=== PATIENT | female | born 1950 | race Caucasian/White ===

== ENCOUNTER 2017-10-16 18:46 | Observation (INO) | payer OTHER, MEDICARE ==
[~2017-10-16] VITALS: Ht 160 cm; Wt 56.2 kg
--- NOTE | 2017-10-16 19:10 | ED SYNCOPE COMPLAINT ---
History of Present Illness General Chief Complaint: Syncope and Near-Syncope Stated Complaint: BIBA WITNESS SYNCOPE, +VOMITTING Source: patient, friend Exam Limitations: no limitations Vital Signs & Intake/Output Vital Signs & Intake/Output Vital Signs Date Time Temp Pulse Resp B/P B/P Pulse O2 O2 Flow FiO2 Mean Ox Delivery Rate 10/17 0054 98.4 88 18 137/73 96 Room Air 10/17 0053 98.4 10/16 2259 98.2 10/16 2243 98.2 90 18 102/59 97 Room Air 10/16 2109 99.8 83 18 126/71 98 Room Air 10/16 1854 97.3 71 16 117/70 97 Room Air ED Intake and Output 10/17 0000 10/16 1200 Intake Total 1000 Output Total 250 Balance 750 Intake, IV 1000 Number 2 Bowel Movements Output, Urine 250 Patient 124 lb Weight Allergies Coded Allergies: erythromycin base (Mild, RASH 10/16/17) azithromycin (RASH 10/16/17) Reconcile Medications No Known Home Medications Triage Nurses Notes Reviewed? yes Timing: single episode today Precipitating Factors: lightheadedness Context: became dizzy/fainted Loss of Consciousness: brief (seconds) Associated Symptoms: dizziness, syncope, nausea/vomiting, weakness LMP (ages 10-50): post menopausal : No Patient currently breastfeeds: No HPI: 66-year-old female with no past medical history brought in by ambulance for evaluation after a syncopal episode. Patient states that she was at dinner with her friends. She had eaten pizza and drank 2 glasses of wine. She states that she started to feel little bit nauseous. She was walking out to her car which is only felt very lightheaded dizzy more nauseous. Her friends walked behind her said that she suddenly started to collapse to the ground. There able to catch her to prevent her from hitting her head. She was able to get up and then had a second syncopal episode right after. She had associated nausea and multiple episodes of vomiting during this time. She was also incontinent of stool and urine. Her friends that witnessed the event deny any rhythmic movements of her arms or legs. She does not have any history of seizures. Patient was brought back into the restaurant after the second episode and is currently feeling much better. There is no chest pain or shortness of breath during the episode. Never happened before. No recent surgery or trauma no history of blood clots. She does report still feeling a little nauseous and had several episodes of vomiting in route to the hospital and here in the emergency department. (Israel Sutton) Past History Travel History Traveled to [place] past 21 day No Medical History Any Pertinent Medical History? see below for history Surgical History Surgical History: non-contributory Psychosocial History What is your primary language [place] Family History Hx Contributory? No (Israel Sutton) Review of Systems Review of Systems Constitutional: Reports: no symptoms. EENTM: Reports: no symptoms. Respiratory: Reports: no symptoms. Cardiovascular: Reports: no symptoms. GI: Reports: see HPI, nausea, vomiting. Genitourinary: Reports: no symptoms. Musculoskeletal: Reports: no symptoms. Skin: Reports: no symptoms. Neurological/Psychological: Reports: no symptoms. All Other Systems: Reviewed and Negative (Israel Sutton) Physical Exam Physical Exam General Appearance: well developed/nourished, no apparent distress, alert, awake Head: atraumatic, normal appearance Eyes: Bilateral: normal appearance, PERRL, EOMI. Ears, Nose, Throat: normal pharynx, normal ENT inspection, hearing grossly normal Neck: normal inspection, supple, full range of motion Respiratory: normal breath sounds, chest non-tender, no respiratory distress, lungs clear Cardiovascular: regular rate/rhythm, normal peripheral pulses Gastrointestinal: normal bowel sounds, soft, non-tender, no organomegaly Back: normal inspection, normal range of motion, no vertebral tenderness Extremities: normal inspection, normal range of motion, no edema Psychiatric: awake, alert, oriented x 3 Cranial Nerves: normal hearing, normal speech, PERRL Coordination/Gait: normal finger to nose, normal gait Motor/Sensory: no motor/sensory deficits Skin: intact, normal color, warm/dry Core Measures ACS in differential dx? No CVA/TIA Diagnosis: No Sepsis Present: No Sepsis Focused Exam Completed? No (Israel Sutton) Progress Differential Diagnosis: AMI, drug induced syncope, orthostatic syncope, other valvular disease, seizure, vasodepressor syncope, DEHYDRATION Plan of Care: Orders Procedure Date/time Status Nothing by Mouth 10/17 B Active Patient Data 10/16 2247 Active Saline Lock 10/[address] in observation 10/16 2240 Active Misc Message 10/16 2240 Active ED Holding Orders 10/16 2240 Active Vital Signs 10/16 2240 Active Code Status 10/16 2240 Active Add-on Test (ER Only) 10/16 2109 Active MAGNESIUM 10/16 1924 Complete ETHANOL 10/16 1924 Complete URINALYSIS 10/16 1857 Complete MISTAKE 10/16 1853 Active Telemetry/Musical Instrument Maker Or Repairer 10/16 1849 Active TROPONIN LEVEL 10/16 1849 Complete COMPREHENSIVE METABOLIC PANEL 10/16 1849 Complete CBC WITHOUT DIFFERENTIAL 10/16 1849 Complete EKG 10/16 1849 Active Laboratory Tests 10/16/172149: Urine Color YEL, Urine Clarity HAZY H, Urine pH 5.5, Ur Specific [place] >= 1.030, Urine Protein TRACE H, Urine Ketones 40 H, Urine Nitrite NEG, Urine Bilirubin NEG, Urine Urobilinogen 0.2, Ur Leukocyte Esterase NEG, Ur Microscopic SEDIMENT EXAMINED, Urine RBC 10-15 H, Urine WBC 1-3 H, Ur Epithelial Cells TRANS H, Hyaline Casts MANY H, Granular Casts RARE H, Urine Mucus MANY H, Urine Hemoglobin TRACE-LYSED, Urine Glucose NEG 10/16/171924: Anion Gap 17 H, Estimated GFR > 60, BUN/Creatinine Ratio 15.0, Glucose 99, Calcium 10.2, Magnesium 2.1, Total Bilirubin 0.4, AST 29, ALT 37, Alkaline Phosphatase 61, Troponin I < 0.01, Total Protein 8.1, Albumin 5.3 H, Globulin 2.8, Albumin/Globulin Ratio 1.9, CBC w Diff MAN DIFF ORDERED, RBC 4.70, MCV 92.7 , MCH 31.3 H, RDW 12.8, MPV 7.7, Gran % 88.0 H, Lymphocytes % 7.7 L, Monocytes % 2.9, Eosinophils % 0.6, Basophils % 0.8, Absolute Granulocytes 15.3 H, Segmented Neutrophils 82 H, Band Neutrophils 1, Absolute Lymphocytes 1.3, Lymphocytes 11 L, Monocytes 5, Absolute Monocytes 0.5, Eosinophils 1, Absolute Eosinophils 0.1, Absolute Basophils 0.1, Platelet Estimate VERIFIED BY SMEAR, Normocytic RBCs VERIFIED, Normochromic RBCs VERIFIED, PUBS MCHC 33.8, Fld Total RBCs Counted 100, Serum Alcohol 42.0 10/16/171902: Serum Alcohol Cancelled 10/16/171857: Magnesium Cancelled Patient seen and evaluated. She had 2 [id number] syncopal episodes today. There is no chest pain or shortness of breath. She does report multiple episodes of nausea and vomiting. She was also incontinent of stool and urine during the episode. The episode was witnessed and there was no apparent seizure activity. On initial evaluation patient became very dizzy during orthostatics were unable to get a blood pressure while she was standing. She feels much better after receiving a liter of saline and she is no longer orthostatic. Initial EKG and troponin are negative. Patient does have an white blood cell count of 17. Her abdomen is soft and nontender urine is clean chest x-ray is clean. No evidence of cellulitis. This may be related to multiple episodes of vomiting versus viral gastroenteritis. Patient will be admitted for observation to telemetry. She will have serial EKGs and troponins monitoring of vital signs IV fluids. Case discussed with Dr. Wright he agrees. The patient does have a low-grade temp of 100.3. IV Tylenol ordered. Diagnostic Imaging: Viewed by Me: Radiology Read. Discussed w/RAD: Radiology Read. CXR Impression: PATIENT: RON GUZMAN PRESENT AGE : 66 PATIENT ACCOUNT NO: [id number] : 51 LOCATION: [facility] ORDERING PHYSICIAN: Florentin Wright MD SERVICE DATE: 10/16/17 EXAM TYPE: RAD - XRY-PORTABLE CHEST XRAY EXAMINATION: XR PORTABLE CHEST CLINICAL INFORMATION: Syncope. COMPARISON: None TECHNIQUE: Portable frontal view of the chest was obtained. FINDINGS: The lungs are well-expanded and clear of acute process. The heart size and pulmonary vascularity is normal. No gross bony abnormality seen. IMPRESSION: Unremarkable chest exam. DICTATED BY: Mabel ZUNIGA, Vinny DATE/TIME DICTATED:10/16/171956 PACK PULLER:FAUSTO DATE/TIME TRANSCRIBED:10/16/171956 Initial ED EKG: normal sinus rhythm, BORDERLINE T WAVE ABN ANTERIOR LEADS (Israel Sutton) Departure Departure Disposition: STILL A PATIENT Condition: Stable Clinical Impression Primary Impression: Syncope Qualifiers: Syncope type: unspecified Qualified Code: R55 - Syncope and collapse Referrals: Gallito Yang MD (PCP/Family) Departure Forms: Customer Survey General Discharge Information Prescriptions: Current Visit Scripts No Known Home Medications Observation Note Spoke With: Natasha Aguero MD Physician Advisor Notified: MARTA ZUNIGA,GALLITO [address] Place Patient In: Non-ED OBS Care Area Rationale for Observation: My rational for observation is as follows [telemetry monitoring, serial EKGs and troponins, IV fluids, IV antiemetics]. (Selwyn ABRAHAM,[place]) PA/DIAZO TECHNICIAN Co-Sign Statement Statement: ED Attending supervision documentation- [x] I saw and evaluated the patient. I have also reviewed all the pertinent lab results and diagnostic results. I agree with the findings and the plan of care as documented in the PA's/DIAZO TECHNICIAN's documentation. 10/16/16, 22:29... pt with syncopal episode, likely vasovagal, however given age, will place in observation for serial trops and repeat ekg. pt with benign exam in ED, comfortable. [] I have reviewed the ED Record and agree with the PA's/DIAZO TECHNICIAN's documentation. [] Additions or exceptions (if any) to the PAs/DIAZO TECHNICIAN's note and plan are summarized below: [] (Adriana ZUNIGA,Florentin Martinez)
[2017-10-16 19:43] LABS: ABSOLUTE BASOPHIL COUNT 0.1 /CUMM (0.0-0.2); ABSOLUTE EOSINOPHIL COUNT 0.1 /CUMM (0.0-0.7); ABSOLUTE GRANULOCYTE CT 15.3 /CUMM (1.4-6.5); ABSOLUTE LYMPH COUNT 1.3 /CUMM (1.2-3.4); ABSOLUTE MONOCYTE COUNT 0.5 /CUMM (0.10-0.60); BASOPHIL % 0.8 % (0.0-2.0); EOSINOPHIL % 0.6 % (0-5); HEMATOCRIT 43.5 % (37-47); MEAN CORPUSCULAR HGB 31.3 PG (27.0-31.0); MEAN CORPUSCULAR HGB CONC 33.8 G/DL (33.0-37.0); MEAN CORPUSCULAR VOLUME 92.7 FL (81.0-99.0); MEAN PLATELET VOLUME 7.7 FL (7.4-10.4); PLATELET COUNT 328 /CUMM (130-400); RBC DISTRIBUTION WIDTH 12.8 % (11.5-14.5); WHITE BLOOD CELL COUNT 17.4 /CUMM (4.8-10.8)
--- NOTE | 2017-10-16 20:02 | RADIOLOGY REPORT ---
EXAMINATION: XR PORTABLE CHEST CLINICAL INFORMATION: Syncope. COMPARISON: None TECHNIQUE: Portable frontal view of the chest was obtained. FINDINGS: The lungs are well-expanded and clear of acute process. The heart size and pulmonary vascularity is normal. No gross bony abnormality seen. IMPRESSION: Unremarkable chest exam.
--- NOTE | 2017-10-16 22:50 | History & Physical ---
Taras Da Silva MD 10/16/17 3599: General Information and HPI MD Statement: I have seen and personally examined RON GUZMAN and documented this H&P. The patient is a 66 year old F who presented with a patient stated chief complaint of [2 syncopal episodes]. Source of Information: patient Exam Limitations: no limitations History of Present Illness: Patient is a 66-year-old female with a PMH significant only melanoma status post excision who presented to the ED after 2 episodes of syncope. Early this afternoon patient noted some mild nausea without vomiting. Patient states that she was out to dinner this evening where she continued to slices of pizza and 2 glasses of wine with continued nausea. While she was walking to her car she experienced loss of consciousness which lasted 20-30 seconds, she was caught by a friend prevented any head strike or injuries. She was able to stand however quickly lost consciousness again after which she was carried into the restaurant. She experienced bowel and bladder incontinence, but witnesses did not report any jerking motion or tongue biting. She had persistent nausea and nonbloody emesis 3 in the restaurant and x 2 in the ED. Patient denies any associated chest pain, lightheadedness, dizziness, shortness of breath, palpitations, blurry vision, weakness, tingling. She endorsed subjective fever and chills while in the ED. She denies any recent symptoms of illness including cough, nasal congestion, abdominal pain, diarrhea, dysuria, frequency, hematuria. Allergies/Medications Allergies: Coded Allergies: erythromycin base (Mild, RASH 10/16/17) azithromycin (RASH 10/16/17) Home Med list No Known Home Medications Past History Travel History Traveled to [place] past 21 day No Medical History Neurological: NONE EENT: NONE Cardiovascular: NONE Respiratory: NONE Gastrointestinal: NONE Hepatic: NONE Renal: NONE Musculoskeletal: NONE Psychiatric: NONE Endocrine: NONE Cancer(s): melanoma (L ear s/p excision) Surgical History Surgical History: none Past Family/Social History Family History Relations & Conditions if any BROTHER FH: coronary artery disease, Onset: 50-60. Psychosocial History Where do you live? Home Who Do You Live With? self Primary Language: Slovenian Smoking Status: Never Smoked ETOH Use: heavy use, daily Illicit Drug Use: denies illicit drug use Living Will? no Functional Ability Ambulation: independent Review of Systems Review of Systems Constitutional: Reports: chills. Denies: fever, malaise, unexplained weight loss. Cardiovascular: Reports: syncope. Denies: chest pain, orthopena, palpitations. Respiratory: Denies: cough, short of breath, sputum production. GI: Reports: bowel incontinence, nausea, vomiting. Denies: diarrhea, bloody stool. Genitourinary: Denies: dysuria, frequency, hematuria. Musculoskeletal: Reports: no symptoms. Skin: Denies: rash. Neurological/Psychological: Denies: headache, numbness, tingling, weakness. Exam & Diagnostic Data Last 24 Hrs of Vital Signs/I&O Vital Signs Date Time Temp Pulse Resp B/P B/P Pulse O2 O2 Flow FiO2 Mean Ox Delivery Rate 10/17 005 98.4 88 18 137/73 96 Room Air 10/17 005 98.4 10/16 2259 98.2 10/16 2243 98.2 90 18 102/59 97 Room Air 10/16 2109 99.8 83 18 126/71 98 Room Air 10/16 1854 97.3 71 16 117/70 97 Room Air Intake & Output 10/17 0800 10/17 0000 10/16 1600 Intake Total 1000 Output Total 250 Balance 750 Intake, IV 1000 Number 2 Bowel Movements Output, Urine 250 Patient 124 lb Weight Physical Exam General Appearance Alert, Oriented X3, Cooperative, No Acute Distress Skin Temp/Moisture Exam: Warm/Dry Sepsis Skin Exam (color): Normal for Ethnicity HEENT Atraumatic, PERRLA, EOMI, Mucous Membr. moist/pink Neck Supple, No JVD Cardiovascular Regular Rate, Normal S1, Normal S2, No Murmurs Lungs Clear to Auscultation, Normal Air Movement Abdomen Normal Bowel Sounds, Soft, No Tenderness, No Hepatospenomegaly, No Masses Neurological Normal Speech, Strength at 5/5 X4 Ext, Normal Tone, Sensation Intact, Cranial Nerves 3-12 NL, Reflexes 2+ Extremities No Clubbing, No Cyanosis Vascular Normal Pulses, Pulses Symmetrical Sepsis Peripheral Pulse Location: Posterior Tibialis Sepsis Peripheral Pulse Exam: Normal Sepsis Cap Refill Exam: <2 Sec Last 24 Hrs of Labs/Wei: Laboratory Tests 10/17/17 0153: Troponin I < 0.01 10/16/17 2150: Urine Color YEL, Urine Clarity HAZY H, Urine pH 5.5, Ur Specific [place] >= 1.030, Urine Protein TRACE H, Urine Ketones 40 H, Urine Nitrite NEG, Urine Bilirubin NEG, Urine Urobilinogen 0.2, Ur Leukocyte Esterase NEG, Ur Microscopic SEDIMENT EXAMINED, Urine RBC 10-15 H, Urine WBC 1-3 H, Ur Epithelial Cells TRANS H, Hyaline Casts MANY H, Granular Casts RARE H, Urine Mucus MANY H, Urine Hemoglobin TRACE-LYSED, Urine Glucose NEG 10/16/17 1925: Anion Gap 17 H, Estimated GFR > 60, BUN/Creatinine Ratio 15.0, Glucose 99, Lactic Acid 2.1, Calcium 10.2, Magnesium 2.1, Total Bilirubin 0.4, AST 29, ALT 37, Alkaline Phosphatase 61, Creatine Kinase 93, Troponin I < 0.01, Total Protein 8.1, Albumin 5.3 H, Globulin 2.8, Albumin/Globulin Ratio 1.9, Lipase 160, Prolactin 111.7 H, CBC w Diff MAN DIFF ORDERED, RBC 4.70, MCV 92.7, MCH 31.3 H, RDW 12.8, MPV 7.7, Gran % 88.0 H, Lymphocytes % 7.7 L, Monocytes % 2.9, Eosinophils % 0.6, Basophils % 0.8, Absolute Granulocytes 15.3 H, Segmented Neutrophils 82 H, Band Neutrophils 1, Absolute Lymphocytes 1.3, Lymphocytes 11 L, Monocytes 5, Absolute Monocytes 0.5, Eosinophils 1, Absolute Eosinophils 0.1, Absolute Basophils 0.1, Platelet Estimate VERIFIED BY SMEAR, Normocytic RBCs VERIFIED, Normochromic RBCs VERIFIED, PUBS MCHC 33.8, Fld Total RBCs Counted 100, Serum Alcohol 42.0 10/16/17 1903: Serum Alcohol Cancelled 10/16/17 1858: Magnesium Cancelled Diagnostic Data EKG Results NSR, normal axis T wave inversion V1-3, T wave flattening in V4-6 HR 72 QTc 434 CXR Results unremarkable Assessment/Plan Assessment: Patient is a 66-year-old female with a PMH significant only melanoma status post excision who presented to the ED after 2 episodes of syncope. VS on admission: T 97.3, P 71, BP 117/70, RR 16, pulse ox 97% on room air; orthostatic vital signs negative Labs on admission: WBC 17.4, H/H 14.7/43.5, platelets 328, granulocytes 88%, no bandemia, anion gap 17, lactic acid 2.1, albumin 5.3, prolactin 111.7, UA: Hazy, trace protein, ketones 40, hyaline casts, rare granular casts Problem list #Syncopal episodes #Elevated anion gap #Leukocytosis, likely stress-induced however possibly due to aspiration -observe on telemetry floor - Repeat orthostatics in a.m. -Serial troponins and EKG, negative so far, follow-up in a.m. -Cardiology consult in a.m. -Echocardiogram -[facility] protocol for patient's chronic alcohol abuse -EEG given syncopal episodes of elevated prolactin, consider head MRI and neuro consult -X-ray PA and lateral in a.m. to rule out aspiration pneumonia, hold off on antibiotics for now, trend WBC -Continue his gentle fluid rehydration MS 75 mL/hour DVT prophylaxis: Subcutaneous heparin, ALPS CODE STATUS: Full code As Ranked By This Provider Problem List: 1. Syncope Qualifiers Syncope type: unspecified Qualified Code: R55 - Syncope and collapse Core Measures/Misc (06/28) Acute Coronary Syndrome ACS Diagnosis: No Congestive Heart Failure Congestive Heart Failure Diagnosis No Cerebrovascular Accident CVA/TIA Diagnosis: No VTE (View Protocol) VTE Risk Factors Age>40 No Mechanical VTE Prophylaxis d/t N/A MechProphylax Ordered No VTE Pharm Prophylaxis d/t NA PharmProphylax ordered Sepsis (View protocol) Sepsis Present: No Jean Willis MD 10/17/17 0200: Resident Review Statement Resident Statement: examined this patient, discussed with music industry internship, agreed with music industry internship Other Findings: Ms. Seaman old female with no significant past medical history who presented to ED with chief complaint of episodes of syncope. Apparently patient had "a happy hour" with her friends this evening, had 2 slices of pizza and 2 glasses of white wine, patient reported nausea and not feeling "quite right", when she was heading out the restaurant, she all of a sudden had a syncopal attack where she lost his consciousness for 10-20 seconds, woke up and stood up and again had lost her consciousness for another 10 or 20 seconds. Both episodes were witnessed, patient had urine and stool incontinence, vomited 2 times in the restaurant and 3 times in the ED of basicly foot content, no blood or bile. Patient denied any weakness, numbness, headache, blurry vision, chest pain, palpitation, previous episodes of syncopal attack or near syncope. In ED she had history of chills, fever of 100.2. Patient reported history of daily alcohol consumption 2-3 glasses of wine, denied smoking or illicit drugs. Patient denied any history of recent infection or history of skin sick contact. On admission vital signs temperature 97.3, pulse 71 regular, blood pressure 117/ 70, respiratory rate 16 saturating 97% on room air Physical exam She is alert, oriented, not in acute distress. HEENT revealed PERRLA, EOMI, cranial nerves II -12 grossly intact. Examination of the neck showed no JVD, NO cervical lymphadenopathy. Cardiovascular exam pertinent for normal S1, S2, no murmurs rubs or gallops appreciated, chest was clear to auscultation bilaterally. Abdominal exam was benign and abdomen soft, no tenderness with normal bowel sounds in all 4 quadrants. Examination of the lower extremities did not reveal any edema. Neuro exam pertinent for strength 5 out of 5 in all lower extremities, 5 out of 5 in upper extremities, sensation grossly intact. Labs significant for leukocytosis 17.4 with left shift and no bands, anion gap 17, troponin negative, alcohol 42, UA positive for ketones, hyaline casts Problem list #Syncopal attack #Elevated anion gap in sitting of albumin 5.3--expected anion gap 13 #Ketoacidosis mostly alcoholic versus starvation #Leukocytosis mostly reactive due to stress situation #Possible aspiration pneumonia in setting of vomiting and loss of consciousness Plan -Admit to telemetry floor -Vital signs every shift -Repeat orthostatics in a.m. -Gentle hydration with normal saline 1 pack 75 mL per hour -Repeat CBC and BMP in a.m. -Obtain another set of trops and EKG -Obtain prolactin, CPK, lactic acid -Obtain lipase -Echocardiogram -Repeat chest x-ray PA lateral views in a.m. -We'll hold off antibiotics for now -Given significant alcohol intake will start Ativan 1 mg every per CIWA score -Cardiac consultation in a.m. DVT prophylaxis heparin subcutaneous Code full Diet regular Natasha Aguero 10/17/17 0418: Attending MD Review Statement Attending Statement Attending MD Statement: examined this patient, discuss w/resident/PA/TOOL STRAIGHTENER, agreed w/resident/PA/TOOL STRAIGHTENER, reviewed EMR data (avail), reviewed images, amended to note Attending Assessment/Plan: CC: Syncope and collapse. PMH: Melanoma, HLD Patient was brought in ER after an episode of syncope. Patient states that she has been feeling nauseous and uneasy the whole day today. She went to eat pizza and had a couple of glasses of wine today, was going out of restaurant when she felt lightheaded, abdominal uneasiness followed by almost fall but her friend supported her. Immediately after that she had another episode of lightheadedness and she passed out for a few seconds. She was rushed inside the restaurant again and was sitting in the chair when she woke up, mild confusion but was oriented. She had bowel and bladder incontinence episode during that time. Friends did not notice any jerking movements. This episode was followed by 5 episodes of vomiting (3 times in restaurant, 2 times here in ER) Patient never had similar complaints in the past. Patient exercises regularly and been asymptomatic for any chest pain, palpitations, dizziness, lightheadedness. Never had seizures. When asked repeatedly she endorses less water intake during winter months. Yesterday she was shoveling the snow without any lightheadedness or chest pain. No diarrhea or vomiting or any signs of infection before today. While in ER her right eye lid was mildly swollen, she states that she used a new makeup today and she had similar eye swellings in the past when she went to [facility] or tried different makeup. Vitals: T max 100.5 (not documented in ER), pulse in 70s, RR 16, blood pressure 117/70, saturating 97% on room air On exam: A O 3, cooperative, no acute distress, neck supple, JVD normal, no lymphadenopathy, mucosa moist, no focal neurological deficit, no dependent edema , no obvious skin rashes or inflammation CVS: S1-S2, RRR. RS: Clear to auscultate bilaterally. Abdomen: Soft, NT, ND, bowel sounds present. Mild lid edema right eye, no evidence of redness or inflammation or rash. Labs: WBC 17.4, hemoglobin 14.7, hematocrit 43.5, platelet 328, neutrophils 88, bands 1, sodium 141, potassium 4.2, chloride 103, bicarbonate 21, BUN 12, creatinine 0.8, anion gap 17, lactate 2.1, troponin less than 0.01, LFT unremarkable except albumin 5.3, prolactin 111.7, alcohol 42.0, UA: Trace protein, 40 ketones, RBC 15, positive for epithelial cells, hyaline casts, granular cast ECG: No acute abnormality CXR:Unremarkable chest exam. Assessment and plan 66-year-old female with no significant past medical history was brought in ER after an episode of syncope and collapse. Patient felt nauseous the whole day, more so just prior to episode, mild vague discomfort in abdomen followed by feeling lightheaded for very short duration and then almost passed out and was supported by her friend. In few seconds she had another episode where she actually lost consciousness and was supported by her friend, no seizure-like activity but was noted to have bowel and bladder incontinence. No tongue bite. Patient was confused for a couple of seconds after waking up but normal after that. Patient endorses decreased fluid intake as it is winter. No different use of medications, complete ROS unremarkable. Patient would benefit for evaluation for her syncopal episode given her age, she does not have any significant comorbidities. From her history it might be secondary to dehydration causing orthostatics versus vasovagal. When initial set of orthostatic vitals were tried in ER, patient could not stand up because of the dizziness and actually blood pressure could not be noted after standing. Second set of orthostatics (after IV normal saline bolus ), unremarkable. Any arrhythmias or structural heart disease should be ruled out, ACS should be ruled out being a typical symptom and females. Need to Rule out PE, low well's score. Given her bowel and bladder incontinence seizure can be a possibility but episode was noted by friends did not notice any jerking movements, no tongue bite. At the same time patient had fever of 100.5 (undocumented) in ER, leukocytosis and mild lactic acidosis but there is no obvious source of infection, given her vomiting after the syncopal episode should rule out any developing aspiration pneumonia. Patient had minimal lid edema the right eye, probably secondary to new cosmetic use, Benadryl given in ER. + Syncope and collapse - Place in observation on telemetry - Continuous telemetry monitoring - Serial troponin and EKG - Add CPK and prolactin to the initial set of lab if possible - If prolactin elevated to might require EEG and MRI of brain (for any new onset seizure evaluation) - Chest x-ray PA and lateral in a.m. to rule out aspiration pneumonia - Check d-dimer - Continue gentle hydration 75 mL normal saline per hour for 1 more liter - Check orthostatics in a.m. - 2-D echocardiogram in a.m. - Cardiology consult - 2+ glasses of wine everyday use, when necessary Ativan according to CIWA score - DVT prophylaxis
[2017-10-17] VITALS (7 sets, daily range): BP systolic 122–130; BP diastolic 70–77
[2017-10-17 06:19] LABS: ABSOLUTE BASOPHIL COUNT 0 /CUMM (0.0-0.2); ABSOLUTE EOSINOPHIL COUNT 0 /CUMM (0.0-0.7); ABSOLUTE GRANULOCYTE CT 8.2 /CUMM (1.4-6.5); ABSOLUTE LYMPH COUNT 0.3 /CUMM (1.2-3.4); ABSOLUTE MONOCYTE COUNT 0.2 /CUMM (0.10-0.60); BASOPHIL % 0 % (0.0-2.0); EOSINOPHIL % 0.4 % (0-5); GRANULOCYTE % 94.8 % (42.2-75.2); MEAN CORPUSCULAR HGB 31.5 PG (27.0-31.0); MEAN CORPUSCULAR HGB CONC 34.1 G/DL (33.0-37.0); MEAN CORPUSCULAR VOLUME 92.3 FL (81.0-99.0); MEAN PLATELET VOLUME 7.3 FL (7.4-10.4); PLATELET COUNT 229 /CUMM (130-400); RED BLOOD CELL CT 3.96 /CUMM (4.20-5.40); WHITE BLOOD CELL COUNT 8.7 /CUMM (4.8-10.8)
[2017-10-17 06:23] LABS: HEMATOCRIT 36.6 % (37-47)
--- NOTE | 2017-10-17 09:03 | RADIOLOGY REPORT ---
EXAMINATION: XR CHEST CLINICAL INFORMATION: Vomiting, fever, leukocytosis COMPARISON: Multiple priors, most recent from 10/16/2017. TECHNIQUE: 2 views of the chest were obtained. FINDINGS: The cardiomediastinal silhouette is within normal limits. There is no focal airspace opacity. Mild blunting of the right costophrenic angle can be seen on radiographs from 2014, likely representing pleural thickening or scarring. Otherwise the pleural spaces are clear. There is a partially imaged sclerotic focus in the right proximal humerus which is present dating back to 2007 and is presumably benign. IMPRESSION: No evidence for acute pulmonary disease.
--- NOTE | 2017-10-17 15:32 | PN- Att Addend ---
See Addendum Attending Addendum Attending Brief Note Patient was brought in ER after an episode of syncope, brief episode for few seconds and return to baseline. She c/o upset stomach and few episode of loose stools. Vitals afebrile, BP stable. Blood alcohol level 42. Assessment and plan 66-year-old female with no significant past medical history was brought in ER after an episode of syncope and collapse. uneventful stay so far. 1. Syncope and collapse 2. Alcohol intoxication 3. Possible viral infection 4. Gastritis. 5. Elevated prolactin. - Place in observation on telemetry - Continuous telemetry monitoring - Serial troponin negative for WI. f/u cardiology and neurology. ativan prn for seizure if occurs. f/u EEG. - Continue gentle hydration. - f/u orthostats. - f/u echocardiogram - DVT prophylaxis
--- NOTE | 2017-10-17 17:11 | Cons- Neurology ---
General Information and HPI Consulting Request Date of Consult: 10/17/17 Requested By: Natasha Aguero MD History of Present Illness: 66-year-old female admitted following brief loss of consciousness, vomiting and bowel incontinence. The patient was in her usual good state of health until yesterday afternoon, following happy hour at which time she had several drinks and some pizza. She was aware that she had felt somewhat queasy earlier in the day. In the parking lot, on the way to her car, she became lightheaded and slowly crumpled to the ground. She believes that she briefly lost consciousness however there were no involuntary movements noted by onlookers. There was no confusion immediately afterward. Soon thereafter, she had an episode of bowel incontinence and protracted vomiting. She is much more comfortable at this time however still feels as if her stomach is somewhat upset. She denies prior history of syncope, significant head trauma or stroke. Allergies/Medications Allergies: Coded Allergies: erythromycin base (Mild, RASH 10/16/17) azithromycin (RASH 10/16/17) Home Med List: No Known Home Medications Review of Systems Review of Systems: Notable for the recent abdominal upset, nausea, vomiting and bowel dyscontrol. There is been no recent fever, chills, rash, diplopia, dysarthria, dysphagia, chest pain, shortness of breath, joint inflammation or bleeding disturbance Past History Travel History Traveled to [place] past 21 day No Medical History Neurological: NONE EENT: NONE Cardiovascular: NONE Respiratory: NONE Gastrointestinal: NONE Hepatic: NONE Renal: NONE Musculoskeletal: NONE Psychiatric: NONE Endocrine: NONE Cancer(s): melanoma (L ear s/p excision) Surgical History Surgical History: 1 Family History Relations & Conditions If Any: BROTHER FH: coronary artery disease, Onset: 50-60. Psychosocial History Where Do You Live? Home Who Do You Live With? self Primary Language: Slovenian Smoking Status: Never Smoked ETOH Use: heavy use, daily Illicit Drug Use: denies illicit drug use Living Will? no Functional Ability Ambulation: independent Exam & Diagnostic Data Vital Signs and I&O Vital Signs Date Time Temp Pulse Resp B/P B/P Pulse O2 O2 Flow FiO2 Mean Ox Delivery Rate 10/17 1600 99.4 88 19 124/72 97 Nasal Cannula 10/17 1345 99.5 93 20 130/70 10/17 1345 99.5 93 20 130/70 96 Room Air / 1115 99.3 90 20 130/75 01/06 1112 98.5 88 18 127/76 97 Room Air / 1111 99.3 90 20 130/75 98 Room Air 10/17 0811 97.5 62 20 124/76 97 Room Air / 0800 98.1 99 20 122/77 / 0800 98.1 99 20 122/77 97 Room Air / 0613 98.9 93 20 133/79 97 Room Air 10/17 0054 98.4 88 18 137/73 96 Room Air / 0053 98.4 01/ 2259 98.2 / 2243 98.2 90 18 102/59 97 Room Air 10/16 2109 99.8 83 18 126/71 98 Room Air 10/16 1854 97.3 71 16 117/70 97 Room Air Intake & Output 10/17 1600 10/17 0800 01 0000 Intake Total 1000 Output Total 250 Balance 750 Intake, IV 1000 Number 2 Bowel Movements Output, Urine 250 Patient 124 lb Weight Pleasant middle-aged female in no acute distress. Higher cortical function was intact. Speech was fluent. Pupils were equal and reactive. Extraocular movements were full. Face was symmetric. Tongue was midline; there were no fresh lacerations of the tongue. Motor examination showed normal tone, bulk and strength throughout. Deep tendon reflexes were brisk bilaterally. Plantar responses were flexor. There was no ankle clonus. Fine finger movements and rapid alternating movements performed normally. Sensory examination was normal to primary modalities. Gait was untested. Assessment/Plan Assessment: The patient presents with a witnessed syncopal episode, likely vasovagal. Her examination is normal. Although there is almost no suspicion for epileptic seizure, the fact that she has had a previous melanoma would prompt me to suggest an imaging study of the brain. If this were negative, I would not need to proceed with an EEG. She will be observed briefly. Disposition will be left at the medical team. Please feel free to call with any further questions. Recommendations: As above. Consult Acknowledgment - Thank you for your consult request.
--- NOTE | 2017-10-17 18:07 | CT SCAN REPORT ---
EXAMINATION: CT HEAD WITHOUT CONTRAST CLINICAL INFORMATION: Seizures. Syncopal episode. Rule out intracranial pathology. History of melanoma COMPARISON: None TECHNIQUE: Contiguous axial imaging was performed from the skull base to vertex without intravenous administration of contrast. DLP: 557 mGy-cm FINDINGS: There is no evidence of acute intracranial hemorrhage or territorial infarction. No abnormal mass effect or midline shift is seen. Rooney to white matter differentiation is well preserved. No extra-axial fluid collections are identified. The ventricles are normal in size. There is no abnormal attenuation within the brain parenchyma. The osseous structures and soft tissues are normal. The mastoid air cells and visualized portions of the paranasal sinuses are well aerated. IMPRESSION: No acute intracranial pathology. An MRI of the brain has been ordered, which would have higher sensitivity for identifying intracranial metastatic disease.
--- NOTE | 2017-10-17 22:29 | Cons- Cardiology ---
General Information and HPI Consulting Request Date of Consult: 10/17/17 Requested By: Natasha Aguero MD History of Present Illness: This patient is a 66 year old female with history of melanoma who had a syncoopal episode last evening. Yesterday the patient felt poorly with abdominal discomfort and nausea. She arose to walk to her car when she suddenly felt lightheaded and sunk down. She feels that she passed out for about 10 seconds with bowel and bladder incontinence. She subsequently noted diarrhea, fever and chills. This patient is active at baseline and is without chest discomfort, shortness of breath, lightheadedness or palpitations. Allergies/Medications Allergies: Coded Allergies: erythromycin base (Mild, RASH 10/16/17) azithromycin (RASH 10/16/17) Home Med List: No Known Home Medications Past History Travel History Traveled to [place] past 21 day No Medical History Blood Transfusion Hx: No Neurological: NONE EENT: NONE Cardiovascular: NONE Respiratory: NONE Gastrointestinal: NONE Hepatic: NONE Renal: NONE Musculoskeletal: NONE Psychiatric: NONE Endocrine: NONE Cancer(s): melanoma (L ear s/p excision) Surgical History Surgical History: 1 Family History Relations & Conditions If Any: BROTHER FH: coronary artery disease, Onset: 50-60. Psychosocial History Where Do You Live? Home Who Do You Live With? self Primary Language: Luxembour[place] Smoking Status: Never Smoked ETOH Use: heavy use, daily Illicit Drug Use: denies illicit drug use Living Will? no Functional Ability Ambulation: independent Exam & Diagnostic Data Vital Signs and I&O Vital Signs Date Time Temp Pulse Resp B/P B/P Pulse O2 O2 Flow FiO2 Mean Ox Delivery Rate 10/17 2210 99.0 83 18 124/75 10/17 2210 99.0 83 18 124/75 97 Room Air 10/17 2209 99.0 83 18 124/75 97 10/17 2028 99.1 73 18 137/79 98 Room Air 10/17 1941 74 124/77 10/17 1759 98.5 74 19 128/77 97 Room Air 10/17 1600 99.4 88 19 124/72 10/17 1600 99.4 88 19 124/72 97 Room Air 10/17 1345 99.5 93 20 130/70 10/17 1345 99.5 93 20 130/70 96 Room Air 10/17 1115 99.3 90 20 130/75 01/06 1112 98.5 88 18 127/76 97 Room Air / 1111 99.3 90 20 130/75 98 Room Air 10/17 0811 97.5 62 20 124/76 97 Room Air 10/17 0800 98.1 99 20 122/77 10/17 0800 98.1 99 20 122/77 97 Room Air 10/17 0613 98.9 93 20 133/79 97 Room Air 10/17 0054 98.4 88 18 137/73 96 Room Air 10/17 0053 98.4 10/16 2259 98.2 10/16 2243 98.2 90 18 102/59 97 Room Air Intake & Output 10/17 1600 10/17 0800 10/17 0000 10/16 1600 10/16 0800 10/16 0000 Intake Total 1000 Output Total 250 Balance 750 Intake, IV 1000 Number 2 Bowel Movements Output, Urine 250 Patient 124 lb Weight Physical Exam: General: WD/WN female in NAD, alert and oriented x 3 HEENT: NC/AT, PERRL, EOMI Neck: no JVD, no carotid bruit Heart: RRR w/o murmur Lungs: clear bilaterally Abdomen: soft, NT, +ve bowel sounds Extremities: no edema Assessment/Plan Assessment/Plan * This patient has symptoms consistent with a viral gastroenteritis. In that setting she likely had volume depletion and upon arising became orthostatic and passed out. She did subsequently have watery diarrhea with incontinence. A seizure remains in the differential and an EEG may be considered. For now I would recommend IV hydration and obtain an echocardiogram to assess for structural heart disease. Monitor on telemetry for 24 hours to assess for arrhythmias. Consult Acknowledgment - Thank you for your consult request.
[2017-10-18 06:18] VITALS: BP 126/72
[2017-10-18 06:20] VITALS: BP 126/72
[2017-10-18] MEDS ORDERED: VITAMIN B-150 M1 PO (11:17)
[2017-10-18] MEDS ORDERED: ONE DAILY MULT1 EAC2 PO (11:17)
--- NOTE | 2017-10-18 11:22 | Patient Discharge Instructions ---
Discharge Instructions General Discharge Information You were seen/treated for: 1. Syncope and collapse 2. Alcohol intoxication 3. Possible viral infection 4. Gastritis. 5. Elevated prolactin. Special Instructions: Follow-up PCP in one week after discharge. 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 Follow-up with neurologist in 1 week after discharge Follow-up physical plant employee and neurologist regarding echocardiogram and EEG as an outpatient respectively Diet Continue normal diet: Yes Activity Full Activity/No Limits: Yes Acute Coronary Syndrome Inclusion Criteria At DC or during hospital stay patient has or had the following: ACS DIAGNOSIS No Discharge Core Measures Meds if any: Prescribed or Continued at Discharge Meds if any: NOT Prescribed or Continued at Discharge Congestive Heart Failure Inclusion Criteria At DC or during hospital stay patient has or had the following: CHF DIAGNOSIS No Discharge Core Measures Meds if any: Prescribed or Continued at Discharge Meds if any: NOT Prescribed or Continued at Discharge Cerebrovascular accident Inclusion Criteria At DC or during hospital stay patient has or had the following: CVA/TIA Diagnosis No Discharge Core Measures Meds if any: Prescribed or Continued at Discharge Meds if any: NOT Prescribed or Continued at Discharge Venous thromboembolism Inclusion Criteria VTE Diagnosis No VTE Type NONE VTE Confirmed by (Test) NONE Discharge Core Measures - Per Current guidelines, there needs to be overlap - treatment for the first 5 days of Warfarin therapy. - If discharged on Warfarin prior to 5 days of - overlap therapy, the patient will need to be - assessed for post discharge needs including - *Post discharge parental anticoagulation - *Warfarin and/or parental anticoagulation education - *Follow up date to check INR post discharge At least 5 days overlap therapy as Inpatient No Meds if any: Prescribed or Continued at Discharge Note: Overlap Therapy is Warfarin and Anticoagulant Meds if any: NOT Prescribed or Continued at Discharge
[2017-10-18 13:43] VITALS: BP 139/76
[2017-10-18 14:45] VITALS: BP 139/76
--- NOTE | 2017-10-18 15:01 | PN- Cardiology ---
Subjective Subjective: * Patient feels better. No lightheadedness. Objective Vital Signs and I&Os Vital Signs Date Time Temp Pulse Resp B/P B/P Pulse O2 O2 Flow FiO2 Mean Ox Delivery Rate 10/18 1445 98.4 80 18 139/76 97 Room Air 10/18 1343 98.4 80 16 139/76 10/18 1213 98.3 76 16 125/74 98 Room Air 10/18 0721 99.1 79 18 118/83 98 Room Air 10/18 0620 97.8 79 18 126/72 98 Room Air 10/18 0618 97.8 79 18 126/72 10/18 0618 97.8 79 18 126/72 98 Room Air 10/18 0402 64 18 / 2211 99.0 83 18 124/75 10/17 2211 99.0 83 18 124/75 97 Room Air 10/17 2210 99.0 83 18 124/75 97 10/17 2029 99.1 73 18 137/79 98 Room Air 10/17 1941 74 124/77 10/17 1759 98.5 74 19 128/77 97 Room Air 10/17 1600 99.4 88 19 124/72 10/17 1600 99.4 88 19 124/72 97 Room Air Intake & Output 10/18 1600 10/18 0800 10/18 0000 10/17 1600 10/17 0800 10/17 0000 Intake Total 300 40 100 1000 Output Total 350 250 Balance -50 40 100 750 Intake, IV 1000 Intake, Oral 300 40 100 Number 2 Bowel Movements Output, Urine 350 250 Patient 124 lb 124 lb Weight Physical Exam: General: WD/WN female in NAD, alert and oriented x 3 HEENT: NC/AT, PERRL, EOMI Neck: no JVD, no carotid bruit Heart: RRR w/o murmur Lungs: clear bilaterally Abdomen: soft, NT, +ve bowel sounds Extremities: no edema Assessment/Plan Assessment/Plan * This patient has symptoms consistent with a viral gastroenteritis. In that setting she likely had volume depletion and upon arising became orthostatic and passed out. She did subsequently have watery diarrhea with incontinence. A seizure remains in the differential and an EEG may be considered and MRI should be considered. There is no significant structural heart disease on her echocardiogram. The patient has been discharged. Continue telemetry? Not applicable
--- NOTE | 2017-10-18 15:41 | ECHOCARDIOGRAM REPORT ---
RON GUZMAN Age: 66 : 1950 Gender: F Exam Date: 10/18/2017 11:40 Exam Location: ER Ht (in): 63 Wt (lb): 124 BSA: 1.58 BP: 118 / 83 Ordering Physician: Jose Willis MD Referring Physician: Gallito Carter MD, PhD Technologist: Susi Perea SUZIE Room Number: [id number] Indications: LIGHTHEADEDNESS Rhythm: Sinus Technical Quality: good FINDINGS Left Ventricle Normal left ventricular size, wall thickness and systolic function with no obvious regional wall motion abnormalities. Normal left ventricular diastolic filling pattern for age. The ejection fraction is visually estimated at 60%. Right Ventricle The right ventricle is normal in size and function. Right Atrium The right atrium is normal in size. Left Atrium The left atrium is normal in size. The interatrial septum is intact. Mitral Valve The mitral valve is normal in structure and function. There is mild mitral regurgitation. Aortic Valve Structurally normal aortic valve without significant sclerosis or stenosis. There is mild aortic regurgitation. Tricuspid Valve The tricuspid valve is normal in structure and function. There is trace tricuspid regurgitation. Pulmonary artery systolic pressure is normal. Pulmonic Valve Structurally normal pulmonic valve. There is trace pulmonic regurgitation. Pericardium Normal pericardium without effusion. No pleural effusion. Great Vessels Normal aortic root dimension. The aortic arch and great vessels are well seen and are normal. CONCLUSIONS 1. Normal EF of60%. 2. Mild mitral regurgitation. 3. Trace tricuspid regurgitation. 4. Mild aortic regurgitation. 5. Trace pulmonic regurgitation. Gallito Carter M.D. (Electronically Signed) Final Date: 18 October 2017 14:00 MEASUREMENTS (Male / Female) Normal Values 2D ECHO LV Diastolic Diameter PLAX 3.6 cm 4.2 - 5.9 / 3.9 - 5.3 cm LV Systolic Diameter PLAX 2.4 cm 2.1 - 4.0 cm LV Fractional Shortening PLAX 33.3 % 25 - 46 % LV Ejection Fraction 2D Teich 63.0 % IVS Diastolic Thickness 1.0 cm LVPW Diastolic Thickness 0.8 cm LV Relative Wall Thickness 0.5 RV Internal Dim ED PLAX 2.6 cm 1.9 - 3.8 cm LVOT Diameter 1.9 cm Aortic Root Diameter 2.8 cm LA Systolic Diameter LX 3.2 cm 3.0 - 4.0 / 2.7 - 3.8 cm LA Volume 19.0 cm 18 - 58 / 22 - 52 cm Ascending Aorta Diameter 3.1 cm DOPPLER AV Peak Velocity 125.0 cm/s AV Peak Gradient 6.3 mmHg AV Mean Velocity 85.8 cm/s AV Mean Gradient 3.0 mmHg AV Velocity Time Integral 26.6 cm LVOT Peak Velocity 93.2 cm/s LVOT Peak Gradient 3.5 mmHg LVOT Mean Velocity 61.8 cm/s LVOT Mean Gradient 2.0 mmHg LVOT Velocity Time Integral 18.5 cm LVOT Stroke Volume 52.5 cm AV Area Cont Eq vti 2.0 cm AV Area Cont Eq pk 2.1 cm MV Peak Velocity 89.6 cm/s MV Peak Gradient 3.2 mmHg MV Mean Velocity 54.2 cm/s MV Mean Gradient 1.0 mmHg Mitral E Point Velocity 73.5 cm/s Mitral A Point Velocity 70.1 cm/s Mitral E to A Ratio 1.0 MV PHT Velocity 90.9 cm/s MV Deceleration Fisher 329.0 cm/s MV Pressure Half Time 82.9 ms MV Area PHT 2.7 cm MV Deceleration Time 201.0 ms TR Peak Velocity 89.9 cm/s TR Peak Gradient 3.2 mmHg Right Atrial Pressure 5.0 mmHg Pulmonary Artery Systolic Pressu 8.2 mmHg Right Ventricular Systolic Press 8.2 mmHg PV Peak Velocity 74.4 cm/s PV Peak Gradient 2.2 mmHg PV Mean Velocity 57.1 cm/s PV Mean Gradient 1.0 mmHg PV Velocity Time Integral 16.1 cm LV E' Lateral Velocity 8.0 cm/s Mitral E to LV E' Lateral Ratio 9.2 LV E' Septal Velocity 6.4 cm/s Mitral E to LV E' Septal Ratio 11.4
--- NOTE | 2017-10-18 15:47 | PN- Att Addend ---
Attending Addendum Attending Brief Note Patient was brought in ER after an episode of syncope, brief episode for few seconds and return to baseline. She c/o upset stomach and few episode of loose stools. Vitals afebrile, BP stable. Blood alcohol level 42. Assessment and plan 66-year-old female with no significant past medical history was brought in ER after an episode of syncope and collapse. uneventful stay so far. 1. Syncope and collapse 2. Alcohol intoxication 3. Possible viral infection resolved 4. Gastritis. 5. Elevated prolactin. - Place in observation on telemetry - Serial troponin negative for MA. - f/u cardiology and neurology as outpatient. EEG as outpatient. - Encourage Po hydration - f/u echocardiogram with EF 60% no rwma. - DVT prophylaxis - Avoid alcohol intake in future. Counselling given FOLLOW UP PCP in 3-5 days of discharge.
== END 2017-10-18 15:05 ==
LOC: ERH 18:46 → ERHI 22:41 → EDBEDREQTM 10-17 10:14 → EDBEDREQSVC 10-17 10:16 → ERHI 10-18 08:36
PROVIDERS: Physician Assistant Medical; Student in an Organized Health Care Education/Training Program
DX: R55 Syncope and collapse (principal); Z85.820 Personal history of malignant melanoma of skin; Z72.89 Other problems related to lifestyle; D72.829 Elevated white blood cell count, unspecified; A08.4 Viral intestinal infection, unspecified; Z79.899 Other long term (current) drug therapy
CPT/HCPCS: 71045; 71046; 80307; 81001; 82436; 93005; 93010; 93306; 96372; 96374; 96375; G0378; G0480; J0131; J1644; J2405